=== PATIENT | female | born 1960 | race African-American/Black ===

== ENCOUNTER 2016-12-16 15:37 | Inpatient (IN) | payer OTHER ==
[~2016-12-16] VITALS: Ht 172.7 cm; Wt 115.2 kg
[~2016-12-16 15:37] MED LIST: GLIM2TAB2 PO; GLIP5TAB12; INSLAN; INSLIS; IOHEXOL-350 100 ML BOTTLE ONE; LISI-604 PO; LISI10TA5 PO; METF10002 PO; METF500T3; ROSU10TA PO; SODIUM CHLORIDE 0.9% 10ML VIAL ONE
[2016-12-16] MEDS ORDERED: SODIUM CHLORIDE 0.9% 1,000 ML IV ONE (18:24)
[2016-12-16 19:24] LABS: CHLORIDE 101 mEq/L (98-107)
[2016-12-16 19:26] LABS: HEMATOCRIT. 34.2 % (36.0-48.0); HEMOGLOBIN. 10.4 g/dL (12.0-16.0); MEAN CORPUSCULAR HEMOGLOBIN 20.6 pg (28.0-32.0); MEAN CORPUSCULAR VOLUME 67.4 fL (81.0-99.0); MEAN PLATELET VOLUME 10.5 fl (7.4-10.4); PLATELET 158 x1000/uL (130-400); RED BLOOD CELL COUNT 5.07 mill/uL (4.2-5.4); RED CELL DISTRIBUTION WIDTH 17.8 % (11.6-14.6)
[2016-12-16 19:29] LABS: CARBON DIOXIDE 27 mEq/L (21-32)
[2016-12-16 19:30] LABS: D-DIMER 1.87 mg/L FEU (<0.50); PARTIAL THROMBOPLASTIN TIME 22.6 sec (23.4-31.0)
[2016-12-16 19:36] LABS: TROPONIN I < 0.02 ng/mL (0.00-0.04)
[2016-12-16] MEDS ORDERED: SODIUM CHLORIDE 0.9% 1000ML BAG (SEPSIS BOLUS) IV ONE (19:45)
[2016-12-16 20:21] LABS: CLARITY URINE CLEAR (CLEAR); COLOR URINE YELLOW (YELLOW); GLUCOSE URINE 3+ (NEGATIVE); KETONES URINE NEGATIVE (NEGATIVE); LEUKOCYTE ESTERASE URINE NEGATIVE (NEGATIVE); NITRITE URINE NEGATIVE (NEGATIVE); OCCULT BLOOD URINE NEGATIVE (NEGATIVE); PROTEIN URINE NEGATIVE (NEGATIVE); SPECIFIC GRAVITY URINE 1.033 (1.005-1.030); UROBILINOGEN URINE 0.2 E.U./dL (0.2-1.0)
[2016-12-16 20:28] LABS: ATYPICAL LYMPHOCYTES 1; NUCLEATED RED BLOOD CELLS 1 /100 WBC; PLATELET ESTIMATE NORMAL
[2016-12-16] MEDS ORDERED: ASPIRIN 325MG TABLET PO ONE (20:45)
[2016-12-16 23:00] VITALS: BP 144/69
[2016-12-17] MEDS ORDERED: LORAZEPAM 0.5MG TABLET PO PRN
[2016-12-17] MEDS ORDERED: ONDANSETRON HCL 4MG/2ML VIAL IV PRN
[2016-12-17] MEDS ORDERED: DOCUSATE SODIUM 100MG CAPSULE PO PRN
[2016-12-17] MEDS ORDERED: CLONIDINE 0.1MG TABLET PO PRN
[2016-12-17] MEDS ORDERED: MAGNESIUM/ALUMINUM HYDROXIDE/SIMETHICONE 30ML UDC PO PRN
[2016-12-17] MEDS ORDERED: ACETAMINOPHEN 325MG TABLET PO PRN
[2016-12-17] MEDS ORDERED: FARXIGA PO (00:46)
[2016-12-17] MEDS ORDERED: METO25TA6 PO (00:46)
[2016-12-17] MEDS ORDERED: TRULICITY SUBCUT (00:46)
[2016-12-17] MEDS ORDERED: DEXTROSE 50% WATER 50ML SYRINGE IV PRN (01:00)
[2016-12-17 04:00] VITALS: BP 146/73
[2016-12-17 08:08] VITALS: BP 131/65
[2016-12-17] MEDS: BLOOD SUGAR DIAGNOSTIC STRIP TEST SCH ×4 (09:00→21:32)
[2016-12-17] MEDS: LISINOPRIL 20MG TABLET PO SCH (09:14)
[2016-12-17] MEDS: GLIMEPIRIDE 2MG TABLET PO SCH (09:14)
[2016-12-17] MEDS: INSULIN LISPRO 100 UNITS/ML SUBCUT SCH ×4 (09:17→21:32)
[2016-12-17 11:17] VITALS: BP 142/60
[2016-12-17] MEDS: SODIUM CHL 0.45% + KCL 20MEQ/L 1,000 ML IV SCH (14:46)
[2016-12-17] MEDS: HYDROMORPHONE HCL/PF 2MG/ML CPJ IV PRN (15:08)
[2016-12-17 15:39] VITALS: BP 131/56
[2016-12-17 19:54] VITALS: BP_SYST 141; BP_SYST 146; BP_DIAS 76; BP_DIAS 77
[2016-12-17 20:00] VITALS: BP 139/62
[2016-12-18] VITALS: BP 136/71
[2016-12-18] MEDS: SODIUM CHL 0.45% + KCL 20MEQ/L 1,000 ML IV SCH (03:53)
[2016-12-18 04:00] VITALS: BP 136/66
[2016-12-18] MEDS: BLOOD SUGAR DIAGNOSTIC STRIP TEST SCH ×2 (06:43→12:11)
[2016-12-18 07:46] LABS: BASOPHILS % 0.4 % (0.0-2.0); EOSINOPHILS % 1.8 % (0.0-5.0); HEMATOCRIT. 33.1 % (36.0-48.0); HEMOGLOBIN. 10.1 g/dL (12.0-16.0); LYMPHOCYTES % 26.2 % (20.0-50.0); MEAN CORPUSCULAR HEMOGLOBIN 20.6 pg (28.0-32.0); MEAN CORPUSCULAR VOLUME 67.2 fL (81.0-99.0); MONOCYTES % 3.1 % (2.0-8.0); NEUTROPHILS % 68.5 % (40.0-76.0); RED BLOOD CELL COUNT 4.93 mill/uL (4.2-5.4); RED CELL DISTRIBUTION WIDTH 18.1 % (11.6-14.6)
[2016-12-18 08:00] VITALS: BP 128/76
[2016-12-18] MEDS: GLIMEPIRIDE 2MG TABLET PO SCH (08:25)
[2016-12-18] MEDS: LISINOPRIL 20MG TABLET PO SCH (08:25)
[2016-12-18] MEDS: INSULIN LISPRO 100 UNITS/ML SUBCUT SCH ×2 (08:27→13:25)
[2016-12-18 08:28] LABS: CARBON DIOXIDE 25 mEq/L (21-32); CHLORIDE 104 mEq/L (98-107); PHOSPHORUS 3.5 mg/dL (2.5-4.9)
[2016-12-18] MEDS: HYDROMORPHONE HCL/PF 2MG/ML CPJ IV PRN (12:12)
[2016-12-18 12:27] LABS: PLATELET 142 x1000/uL (130-400)
[2016-12-18 16:39] VITALS: BP 115/64
== END 2016-12-18 17:08 | disposition home or self-care (01) | DRG 74 ==
LOC: ER 19:01 → 7WST 20:41 → EDBEDREQ 20:45 → EDBEDREQTM 20:45 → ENRESERV 21:26
PROVIDERS: ADMIT Internal Medicine Nephrology; ATTEND Internal Medicine Nephrology
DX: G90.8 Other disorders of autonomic nervous system (principal); C78.00 Secondary malignant neoplasm of unspecified lung; Z94.81 Bone marrow transplant status; C50.911 Malignant neoplasm of unspecified site of right female breast; E11.65 Type 2 diabetes mellitus with hyperglycemia; E66.01 Morbid (severe) obesity due to excess calories; C95.91 Leukemia, unspecified, in remission; E86.1 Hypovolemia; I10 Essential (primary) hypertension; E78.5 Hyperlipidemia, unspecified; I25.10 Atherosclerotic heart disease of native coronary artery without angina pectoris; E78.00 Pure hypercholesterolemia, unspecified; T45.1X5A Adverse effect of antineoplastic and immunosuppressive drugs, initial encounter; D64.9 Anemia, unspecified; Z80.3 Family history of malignant neoplasm of breast; Z90.710 Acquired absence of both cervix and uterus; Z92.3 Personal history of irradiation; I25.2 Old myocardial infarction; Z79.84 Long term (current) use of oral hypoglycemic drugs; Z79.4 Long term (current) use of insulin; Z79.899 Other long term (current) drug therapy; Z90.49 Acquired absence of other specified parts of digestive tract
CPT/HCPCS: 36415; 70450; 71010; 71275; 80048; 80053; 81001; 82962; 83605; 83735; 84100; 84484; 85025; 85379; 85610; 85730; 87040; 87086; 93005; 96360; 99285; A4216; J1170; J1815; J3480; J7030; J7040; Q9967

== ENCOUNTER 2018-08-07 01:50 | Emergency (ER) | payer OTHER ==
[~2018-08-07] VITALS: Ht 167.6 cm; Wt 95.0 kg
[~2018-08-07 01:50] MED LIST changes: +FARXIGA PO; -GLIP5TAB12; -INSLIS; -IOHEXOL-350 100 ML BOTTLE ONE; -LISI10TA5 PO; +METF-416 PO; -METF10002 PO; -METF500T3; +METO25TA6 PO; -SODIUM CHLORIDE 0.9% 10ML VIAL ONE; +TRULICITY SUBCUT
[2018-08-07] MEDS ORDERED: SODIUM CHLORIDE 0.9% 1,000 ML IV ONE (03:08)
[2018-08-07] MEDS ORDERED: MORPHINE SULFATE 4 MG/ML CPJ (NOT FOR IM USE) IV STA (03:08)
[2018-08-07 03:22] LABS: BASOPHILS % 1.7 % (0.0-2.0); EOSINOPHILS % 0.8 % (0.0-5.0); HEMATOCRIT. 33.4 % (36.0-48.0); HEMOGLOBIN. 10.6 g/dL (12.0-16.0); LYMPHOCYTES % 46.6 % (20.0-50.0); MEAN CORPUSCULAR VOLUME 66.4 fL (81.0-99.0); MONOCYTES % 6.6 % (2.0-8.0); NEUTROPHILS % 44.3 % (40.0-76.0); RED BLOOD CELL COUNT 5.03 mill/uL (4.2-5.4); RED CELL DISTRIBUTION WIDTH 19.5 % (11.6-14.6)
[2018-08-07 03:29] LABS: CHLORIDE 103 mEq/L (98-107)
[2018-08-07 04:51] LABS: CLARITY URINE CLEAR (CLEAR); COLOR URINE YELLOW (YELLOW); KETONES URINE NEGATIVE (NEGATIVE); LEUKOCYTE ESTERASE URINE NEGATIVE (NEGATIVE); NITRITE URINE NEGATIVE (NEGATIVE); OCCULT BLOOD URINE NEGATIVE (NEGATIVE); PH URINE 7.5 (4.5-8.0); PROTEIN URINE 1+ (NEGATIVE); SPECIFIC GRAVITY URINE 1.008 (1.005-1.030); UROBILINOGEN URINE 0.2 E.U./dL (0.2-1.0)
[2018-08-07 05:30] LABS: PLATELET 101 x1000/uL (130-400)
[2018-08-07 05:31] LABS: MEAN PLATELET VOLUME 10.2 fl (7.4-10.4); PLATELET ESTIMATE SLIGHTLY DECREASED
[2018-08-07] MEDS ORDERED: IOHEXOL-300 100 ML BOTTLE ONE (05:44)
[2018-08-07] MEDS ORDERED: DICYCLOMINE HCL 10MG/ML 2ML AMP IM ONE (05:45)
[2018-08-07 06:21] VITALS: BP 81/87
== END 2018-08-07 06:21 | disposition home or self-care (01) ==
LOC: ER 01:50
DX: K59.00 Constipation, unspecified (principal); N83.209 Unspecified ovarian cyst, unspecified side; Z90.89 Acquired absence of other organs; Z90.710 Acquired absence of both cervix and uterus; Z90.10 Acquired absence of unspecified breast and nipple; Z79.84 Long term (current) use of oral hypoglycemic drugs; Z79.899 Other long term (current) drug therapy
CPT/HCPCS: 36415; 74177; 80053; 81003; 83690; 85025; 93005; 96372; 96374; 99284; J0500; J2270; J7030; Q9967; Z7610

== ENCOUNTER → 2019-04-07 | Outpatient (CLI) | payer OTHER ==
[~2019-04-07] MED LIST changes: +BARIUM SULFATE 450ML ORAL SUSP ONE; +CRES10 PO; +IOHEXOL-300 100 ML BOTTLE ONE; -ROSU10TA PO
== END | disposition home or self-care (01) ==
LOC: CT 08:31
PROVIDERS: ATTEND Internal Medicine Hematology & Oncology
DX: C50.411 Malignant neoplasm of upper-outer quadrant of right female breast (principal); C92.01 Acute myeloblastic leukemia, in remission; D56.0 Alpha thalassemia; I70.0 Atherosclerosis of aorta; I25.10 Atherosclerotic heart disease of native coronary artery without angina pectoris
CPT/HCPCS: 71260; 74177; Q9967